=== PATIENT | female | born 1985 | race African-American/Black ===

== ENCOUNTER 2016-11-04 16:16 | Emergency (ER) | payer OTHER ==
[~2016-11-04] VITALS: Ht 165.1 cm; Wt 74.8 kg
== END 2016-11-04 17:59 | disposition home or self-care (01) ==
LOC: CFTX 16:16 → CED 16:16 → CFTX 17:54
DX: J02.9 Acute pharyngitis, unspecified (principal); J06.9 Acute upper respiratory infection, unspecified; H92.01 Otalgia, right ear; Z87.891 Personal history of nicotine dependence
CPT/HCPCS: 87651; 99283